=== PATIENT | male | born 1935 | race Caucasian/White ===

== ENCOUNTER 2019-02-28 08:33 | Outpatient (CLI) | payer OTHER | END 2019-02-28 19:47 | disposition home or self-care (01) | LOC: SRD 08:33 | PROVIDERS: ATTEND Internal Medicine | DX: J84.10 Pulmonary fibrosis, unspecified (principal); J91.8 Pleural effusion in other conditions classified elsewhere; J44.9 Chronic obstructive pulmonary disease, unspecified | CPT/HCPCS: 71046-TC ==